=== PATIENT | female | born 1965 | race Caucasian/White ===

== ENCOUNTER 2020-02-14 13:53 | Outpatient (REF) | payer OTHER, SELFPAY ==
--- NOTE | 2020-02-14 | US_ITS ---
EXAMINATION: MM DIAGNOSTIC DIGITAL BREAST TOMOSYNTHESIS, LEFT US DIAGNOSTIC ULTRASOUND BREAST, LEFT CLINICAL INFORMATION: Recall from screening for nodularity retroareolar left breast and inferior medial left breast. COMPARISON: Mammography: 01/25/2020, 01/19/2019, 10/20/2017, 10/12/2015 TECHNIQUE: Digital breast tomosynthesis is performed. 2D images are generated from the tomosynthesis. The following views are obtained: Spot MLO, spot CC, standard ML. Ultrasound left breast is targeted to both areas left breast 6 to 11:00 position and areolar/periareolar breast. Grayscale imaging and color Doppler are performed without and with harmonics. FINDINGS: There are scattered areas of fibroglandular density (ACR BI-RADS breast composition Category b). The additional views demonstrate nodularity anterior inferior medial left breast, approximately 3.8 cm from nipple measuring around 5 mm. Margins appear smooth. In retrospect, finding is similar to prior studies dating back to 2016. Similarly, there is a 9:00 areolar nodule just beneath the skin likely stable from prior studies as well measuring approximately 0.6 cm. Ultrasound periareolar left breast demonstrates a cyst at the deep dermis 9:00 areolar 1 cm from nipple measuring 0.6 x 0.4 cm. This corresponds to finding on mammography. There is mild increased through-transmission of sound and no associated color flow. Finding is considered to be benign, possibly Patel gland cyst or sebaceous cyst. Ultrasound lower inner left breast demonstrates subtle isoechoic nodule 4 cm from nipple measuring approximately 0.6 x 0.3 cm. There is no associated increased or decreased through transmission of sound or color flow. Margins are smooth. The finding is considered to be benign given the stability on multiple prior mammograms. Results are discussed with the patient at time of visit. IMPRESSION: 1. Benign cyst 9:00 areolar at the dermis either Patel gland cyst or sebaceous cyst. Finding is similar to prior mammograms and considered benign. 2. Circumscribed isoechoic nodule lower inner anterior left breast. Finding is chronic and stable on prior mammograms and therefore considered benign. ASSESSMENT: BI-RADS 2: Benign RECOMMENDATION: Routine annual mammography screening. This patient's information was entered into a reminder system with a target due date for their next mammogram.
== END 2020-02-14 13:54 | disposition home or self-care (01) ==
LOC: HO.MAMMO 13:53
PROVIDERS: PCP Obstetrics & Gynecology; Visit Provider Obstetrics & Gynecology
DX: R92.2 Inconclusive mammogram (principal)
CPT/HCPCS: 76642; 77065

== ENCOUNTER 2020-03-09 09:03 | Outpatient (REF) | payer OTHER, SELFPAY ==
[2020-03-09 09:23] LABS: COVID-19 Test Negative (Negative)
== END 2020-03-09 09:04 | disposition home or self-care (01) ==
LOC: HO.LAB 09:03
PROVIDERS: Visit Provider Internal Medicine
DX: Z20.828 Contact with and (suspected) exposure to other viral communicable diseases (principal)
CPT/HCPCS: 87635; C9803

== ENCOUNTER 2020-04-12 14:42 | Outpatient (REF) | payer OTHER, SELFPAY ==
[2020-04-12 16:14] LABS: T4 Thyroxine 6.9 ug/dL (4.5-12.0); Thyroid Stimulating Hormone 4.14 uIU/mL (0.32-4.0)
== END 2020-04-12 14:43 | disposition home or self-care (01) ==
LOC: HO.LAB 14:42
PROVIDERS: PCP Nurse Practitioner Family; Visit Provider Internal Medicine Gastroenterology
DX: R19.7 Diarrhea, unspecified (principal)
CPT/HCPCS: 84436; 84443

== ENCOUNTER 2020-05-21 06:19 | Outpatient (REF) | payer OTHER, SELFPAY ==
[2020-05-21 07:35] LABS: Alanine Aminotransferase 17 U/L (0-31); Albumin Level 4.2 g/dL (3.5-5.0); Alkaline Phosphatase 66 U/L (39-117); Anion Gap 10 (12-20); Aspartate Amino Transferase 15 U/L (5-31); Bilirubin Total 0.4 mg/dL (0.0-1.0); Blood Urea Nitrogen 13 mg/dL (9-16); Calcium 8.7 mg/dL (8.4-10.2); Carbon Dioxide 27 mmol/L (22-29); Chloride 106 mmol/L (96-108); Cholesterol 178 mg/dL; Estimated Glomerular Filt Rate > 60; Glucose Fasting 107 mg/dL (60-99); HDL Cholesterol 42 mg/dL; LDL Cholesterol Calculated 111 mg/dl; Potassium 4.1 mmol/l (3.3-5.1); Sodium 139 mmol/L (135-145); Total Protein 6.5 g/dL (6.5-8.0); Triglycerides 127 mg/dL
[2020-05-21 08:17] LABS: SARS COV2 IgG Negative (Negative)
== END 2020-05-21 06:20 | disposition home or self-care (01) ==
LOC: HO.LAB 06:19
PROVIDERS: Visit Provider Nurse Practitioner Family
DX: Z00.00 Encounter for general adult medical examination without abnormal findings (principal); E03.9 Hypothyroidism, unspecified; Z01.84 Encounter for antibody response examination
CPT/HCPCS: 36415; 80053; 80061; 86769

== ENCOUNTER 2020-07-05 07:49 | Day surgery (SDC) | payer OTHER, SELFPAY ==
--- NOTE | 2020-06-26 11:06 | HP_ITS ---
DATE OF SERVICE: 07/05/2020 DATE OF PROPOSED SURGERY: July 05, 2020. PREOPERATIVE DIAGNOSES: 1. Hallux abducto valgus, right foot. 2. Dislocated sesamoid, right foot. PLANNED PROCEDURES: 1. Adebayo bunionectomy with open reduction and internal fixation, right foot. 2. Excision of dislocated sesamoid right foot. PLANNED ANESTHESIA: MAC anesthesia. CHIEF COMPLAINT AND HISTORY OF PRESENT ILLNESS: Zaira Ly is a 55-year-old female who relates history of painful bunion involving the right great toe joint, present over the past several years duration. Her pain is aggravated by shoe gear and walking activity. Conservative treatment consisting of rest, accommodative shoe gear, and anti-inflammatory have proven ineffective and the patient is now requesting surgical treatment. PAST MEDICAL HISTORY: Remarkable for anxiety and hypothyroidism. CURRENT MEDICATIONS: The patient takes lorazepam, Zoloft, and hyoscyamine. FAMILY HISTORY: Significant for foot problems, diabetes, hypertension, heart disease, and arthritis. SOCIAL HISTORY: The patient denies smoking, denies use of recreational drugs. She does relate alcohol consumption and drinks 4 cups of coffee per day. ALLERGIES: THE PATIENT HAS NEGATIVE REACTION TO PENICILLIN AND AMOXICILLIN. PODIATRIC PHYSICAL EXAMINATION: NEUROLOGIC EXAM: Reveals intact sensation. VASCULAR EXAM: Reveals +1/4 pulses. DP and PT arteries bilateral with normal capillary refill time noted bilateral feet. DERMATOLOGIC EXAM: Reveals intact skin. ORTHOPEDIC EXAM: Reveals advanced bunion deformity of the right first metatarsophalangeal joint, which is laterally track bound. The patient was seen most recently in my office on June 21, 2020, preoperative informed consent was obtained from the patient that day for planned right foot surgery. Preoperative medical clearance has been provided by Evangelina Granados. PELON Eckert/ALEJANDRO / [id number]
[2020-06-28 14:00] VITALS: BMI 29.9
[2020-07-05] VITALS (8 sets, daily range): BP systolic 100–129; BP diastolic 57–69; PULSE 56–70; RESP 14–18; TEMP 36.3–36.4; O2SAT 97–99
--- NOTE | 2020-07-05 08:11 | HO.ANESPROP2 ---
[facility] Past Medical History Medical History Anxiety disorder Hypothyroidism IBS (irritable bowel syndrome) Surgical History Surgical History History of lumpectomy of right breast History of partial hysterectomy Hx of section Hx of colonoscopy Social History Social History Are you a primary health care recruiter to a significant other at home: No Do you presently have visiting nurse or other home services: No Smoking Status: Former smoker Smoking Quit Date: 18 yrs ago Use of substances other than those prescribed or required for medical reasons: No Have you been hit, kicked, punched, or otherwise hurt by someone within the past year? If so, by whom?: No Advance Directives: No Advance Directives Information Provided: No Advance Directives on File: No Recently lost weight without trying: No Meds Allergies Allergy/AdvReac Type Severity Reaction Status Date / Time amoxicillin Allergy Rash Verified 06/28/20 13:57 vancomycin Allergy Itching Verified 07/05/20 09:31 methylcellulose [Citrucel] AdvReac Unknown upset Verified 06/28/20 13:38 stomach, diarrhea Active Medications: Current Medications Generic Name Dose Route Start Last Admin Trade Name Freq PRN Reason Stop Dose Admin Vancomycin HCl 1,500 mg/ 280 mls @ 186.667 mls/hr 07/05/20 07:30 Sodium Chloride IV 07/05/20 08:59 PREOP ONE Home Medications Medication Instructions Recorded Confirmed Last Taken Type hyoscyamine sulfate 1 tab SUBLINGUAL TID PRN 06/28/20 06/28/20 Unknown History lorazepam 1 tab PO DAILY PRN 06/28/20 06/28/20 Unknown History sertraline 1 tab PO DAILY 06/28/20 06/28/20 Unknown History Exam Exam Date and Time: July 05, 2020 0811 Height,Weight and Vital Signs: Height 5 ft 7 in Weight 86.664 kg Airway Mallampati Class: II TM Dist: >3cm Neck ROM: Full Loose/Missing/Broken Teeth: No Heart: RRR Lungs: CTA Assessment and Plan Assessment Anesthesia Assessment: Anesthesia Plan Discussed and Chart Reviewed Final Anesthetic Review NPO: Yes ASA Class: II Final Preanesthetic Review: Meds/Allgs Chart Reviewed, Consent Obtained/Reviewed and Anes Risks/Benef Reviewed Patient Risk: Low Procedure Risk: Low Anesthetic Plan Anesthetic Plan: GA and MAC: (General back up) Disposition: Standard PACU
--- NOTE | 2020-07-05 09:17 | MHC.SHP ---
Pre-Procedural Eval Section A The patient is an INPATIENT: No Changes since office visit: No Cold of Flu in the past 2 weeks, No New Medical Problems, No Changes in Medication and No Patient answered all questions Section B Chief Complaint: bunion right foot Allergies: Allergies Allergy/AdvReac Type Severity Reaction Status Date / Time amoxicillin Allergy Rash Verified 06/28/20 13:57 methylcellulose [Citrucel] AdvReac Unknown upset Verified 06/28/20 13:38 stomach, diarrhea Plan Diagnosis/Plan: Unchanged I have reviewed the history and physical and performed a pertinent physical examination on my patient. No changes have occurred unless specified.
--- NOTE | 2020-07-05 09:27 | PC.NURSE ---
Patient complaining of severe itchy head. Vancomycin stopped. Patient Denies SOB, Lungs clear. MD Camargo notified and at bedside. Dr. Nuñez notified and ordered to stop Vanco, no new antibiotics ordered. MD Camargo giving Benadryl IV. No hives/rash noted on patients body.
--- NOTE | 2020-07-05 10:29 | PCN2_ITS ---
Brief Operative Note Date of procedure: 07/05/20 Pre-op diagnosis: hallux valgus right Post-op diagnosis: same Procedure: saroj bunionectomy right foot with orif Anesthesia: GLMA Surgeon: Kwame Nuñez Embroiderer Hand: Sandra Valenzuela Estimated blood loss (mL): 1.0 Condition: stable Disposition: same day
--- NOTE | 2020-07-05 11:42 | OP_ITS ---
SURGEON: Kwame Nuñez DPM PREOPERATIVE DIAGNOSIS: POSTOPERATIVE DIAGNOSIS: PROCEDURE PERFORMED: ESTIMATED BLOOD LOSS: COMPLICATIONS: ANESTHESIA: Consisted of local administration of a total of 12 mL of an equal mix of 2% lidocaine with epinephrine 1:100,000 and 0.5% Marcaine plain. Intravenous anesthesia was given by the anesthesia department and the patient was converted to LMA since she was moving excessively and unable to stay still. ANESTHESIOLOGIST: Dr. Camargo.Dr. Camargo. ASSISTANTS: Sandra Valenzuela DPM. SPECIMENS: PREOPERATIVE DIAGNOSES: 1. Hallux abductovalgus, right foot. 2. Dislocated sesamoid, right foot. PROCEDURES PERFORMED: Brittni bunionectomy with open reduction and internal fixation of right foot and relocation of the dislocated sesamoid of the right foot. INTRODUCTION: The patient was brought to the operating room, placed on the operating table in the supine position. After having been suitably anesthetized with local infiltrative anesthesia, the right lower extremity was then prepped and draped in the usual sterile manner. Please note that prior to start of the procedure, the right foot was exsanguinated utilizing Esmarch bandage and right ankle tourniquet was inflated to 250 mmHg pressure for the duration of the procedure. BRITTNI BUNIONECTOMY WITH OPEN REDUCTION AND INTERNAL FIXATION, RIGHT FOOT. Attention was directed to the dorsal aspect of the right first metatarsophalangeal joint, where an incision approximately 7 cm in length was effected, centered over the dorsum of the right first metatarsophalangeal joint. Incision was deepened in same plane and hemostasis was acquired as necessary. Skin margins were underscored and retracted. A dorsal linear capsule incision was then effected. The capsule and periosteum were underscored and retracted. The hypertrophic medial eminence was resected utilizing a power sagittal saw. The first MTP joint was free from adhesions utilizing McGlamry elevator and then the first intermetatarsal space was exposed via blunt and sharp dissection. A lateral capsulotomy and adductor tenotomy were performed via sharp dissection. Please note, the EHL tendon was translocated and subluxed laterally, so it was no longer over the first metatarsal and entirely into the first intermetatarsal space. Attention was directed back to the medial aspect of first metatarsal head, where a modified V-osteotomy was carried out. The osteotomy was effected utilizing sagittal saw. The capital fragment was shifted laterally and impacted upon the first metatarsal and then fixated utilizing two Vidal 3.0 mm diameter screws, each measuring 17 mm in length and oriented perpendicular to the dorsal wing of the osteotomy. The 2-screw fixation was found to give excellent interfragmental compression. The redundant medial shelf of bone was then resected utilizing sagittal saw. The wound was irrigated with copious amounts of sterile saline. The capsule was closed with 3-0 Vicryl and care was taken to relocate the EHL tendon to more central location overlying the first metatarsal shaft. One half of a 3 cm x 3 cm AmnioFix was placed inside the first MTP joint capsule during closure. The skin margins were then closed with 4-0 Monocryl subcuticular with the second half of the AmnioFix being placed in subcutaneous tissue. The skin was then closed utilizing the ZipLine skin closure. Operative site was injected with 5 mL of Marcaine 0.5% plain and 1 mL of dexamethasone phosphate. Sterile Betadine-soaked gauze, sterile gauze, sterile Kerlix fluffs were then applied to the right lower extremity. The right ankle tourniquet was deflated. Normal blood flow was reestablished to the right lower extremity. The patient was discharged to Recovery with vital signs stable. FINAL DISPOSITION: The patient is discharged to home with instructions for self-care and include the followin. To keep the dressings dry, clean, and intact. 2. To keep the right leg elevated with ice above the ankle. 3. To take all medications as prescribed. 4. To limit activity to minimum. 5. To always use surgical shoe when ambulating. 6. To contact Dr. Nuñez if any questions or problems arise. The patient is also instructed to utilize crutches, partial weightbearing of the right foot or knee scooter. PELON Eckert/ALEJANDRO / [id number]
== END 2020-07-05 12:00 | disposition home or self-care (01) ==
PROVIDERS: PCP Nurse Practitioner Family; Visit Provider Podiatrist
PROC: (CPT 28292; principal; 2020-07-05 09:30)
DX: M20.11 Hallux valgus (acquired), right foot (principal); M21.611 Bunion of right foot
CPT/HCPCS: 28296; 88304; 88311; C1713; J1100; J1200; J1885; J2250; J2405; J3010; J3370; J3590

== ENCOUNTER 2020-11-04 20:45 | Emergency (ER) | payer OTHER, SELFPAY ==
--- NOTE | ~2020-11-04 | XR_ITS ---
EXAMINATION: XR ELBOW, LEFT CLINICAL INFORMATION: Fall, confusion. COMPARISON: None TECHNIQUE: AP, lateral, and oblique views of the left elbow. FINDINGS: No visible acute fracture or dislocation. Alignment is anatomic. Joint spaces are maintained. No significant effusion appreciated. XR/XR elbow LT min 3V IMPRESSION: No visible acute fracture or dislocation.
[2020-11-04 20:49] VITALS: BP 145/69; PULSE 66; RESP 16; TEMP 36.4; O2SAT 98; BMI 28.8
--- NOTE | 2020-11-04 21:10 | ED_ITS ---
HPI - Extremity Injury (Upper) General Chief Complaint: Fall Stated Complaint: Arm pain/Injury at work Time Seen by Provider: 11/04/20 21:03 Source: patient Mode of arrival: ambulatory History of Present Illness HPI narrative: 55-year-old female without significant past medical history presents after having sustained a mechanical fall on a wet floor yesterday while at work which caused her to strike her head against the lockers but denies any loss of consciousness, in addition patient struck her left forearm. She denies any use of anticoagulation, dizziness, headache. Since that time patient has been treating her contusions at home, but states due to the continued pain at the proximal left forearm she decided to have it further evaluated. Related Data Home Medications Medication Instructions Recorded Confirmed hyoscyamine sulfate 1 tab SUBLINGUAL TID PRN 06/28/20 06/28/20 lorazepam 1 tab PO DAILY PRN 06/28/20 06/28/20 sertraline 1 tab PO DAILY 06/28/20 06/28/20 Allergies Allergy/AdvReac Type Severity Reaction Status Date / Time amoxicillin Allergy Rash Verified 11/04/20 20:48 vancomycin Allergy Itching Verified 11/04/20 20:48 methylcellulose [Citrucel] AdvReac Unknown upset Verified 11/04/20 20:48 stomach, diarrhea Review of Systems Review of Systems: Pertinent positives and negatives as stated in HPI 10 point review of systems is otherwise negative PMFSH Past Medical History Source: nursing notes reviewed Medical History Anxiety disorder Hypothyroidism IBS (irritable bowel syndrome) Surgical History History of lumpectomy of right breast History of partial hysterectomy Hx of section Hx of colonoscopy Social History Social History Are you a primary laboratory animal caretaker to a significant other at home: No Do you presently have visiting nurse or other home services: No Advance Directives: No Advance Directives Information Provided: No Physical Exam Vital Signs: Vital Signs: Last Vital Signs Temp 97.6 F 11/04/20 20:49 Pulse 66 11/04/20 20:49 Resp 16 11/04/20 20:49 BP 145/69 H 11/04/20 20:49 Pulse Ox 98 11/04/20 20:49 Body Mass Index 28.8 VITAL SIGNS: Reviewed. GENERAL: Well developed, well nourished, in no acute distress. HEAD: Normocephalic/ Contusion to the back of the head EYES: PERRLA, EOMI OROPHARYNX: no oral lesions noted, posterior pharynx clear LUNGS: Normal breath sounds. No adventitious sounds or accessory muscle use. SpO2<98> CARDIOVASCULAR: Regular rate and rhythm without noted murmurs ABDOMEN: Soft, non-tender, non-distended with bowel sounds. LEFT UPPER EXTREMITY: There is a noted for 4.5 cm contusion to the proximal lateral forearm with maintain full range of motion at the elbow without clicking, capillary refill less than 3 seconds, sensation is intact, palpable radial and ulnar pulses. SKIN: Inspection of the skin reveals no rashes NEUROLOGIC: Alert and oriented x 4. Strength and sensation to light touch were grossly intact x 4, no facial asymmetry, no pronator drift, cranial nerves 2-12 grossly intact.. Course Course Course Narrative: 55-year-old female with history and clinical presentation consistent with contusion to left forearm and based on neurologic exam no indication to pursue CT of the head at this time. Review of x-ray negative for any fracture or dislocation. Patient informed of results and discharged in stable condition. Discharge Plan Discharge Clinical Impression: Contusion of arm, left Patient Disposition: Home, Self-Care Instructions: Contusion in Adults (ED) Prescriptions: No Action lorazepam 0.5 mg tablet 1 tab PO DAILY PRN (Reason: Anxiety) RF: 0 hyoscyamine sulfate 0.125 mg tablet, sublingual 1 tab sublingual TID PRN (Reason: diarrhea) RF: 0 sertraline 50 mg tablet 1 tab PO DAILY RF: 0 Referrals: Evangelina Granados, QUALITY CONTROL DIRECTOR [Primary Care Provider] - 2 days Stand Alone Forms: Work/School Release
--- NOTE | 2020-11-04 22:59 | PC.NURSE ---
DEANGELO RAD IS TAKE LONGER THAN USUAL TO READ IMAGING TODAY PT IS AWARE OF LONGER THAN EXPECTED WAIT TIMES.
== END 2020-11-04 23:36 | disposition home or self-care (01) ==
PROVIDERS: Emergency Provider Student in an Organized Health Care Education/Training Program; PCP Nurse Practitioner Family
DX: S50.12XA Contusion of left forearm, initial encounter (principal); W01.198A Fall on same level from slipping, tripping and stumbling with subsequent striking against other object, initial encounter; Y93.89 Activity, other specified; Y92.29 Other specified public building as the place of occurrence of the external cause; Y99.0 Civilian activity done for income or pay
CPT/HCPCS: 73080; 99283

== ENCOUNTER 2021-02-05 18:41 | Emergency (ER) | payer OTHER, SELFPAY ==
--- NOTE | ~2021-02-05 | XR_ITS ---
EXAMINATION: CHEST 2 VIEWS CLINICAL INFORMATION: chest pressure. Sensation of lump . COMPARISON: 06/19/2007. TECHNIQUE: PA and lateral views of the chest obtained. FINDINGS: The lungs are well expanded. Mild eventration to the anterior right hemidiaphragm again noted. No focal infiltrate, effusion, edema, or pneumothorax. Cardiac and mediastinal silhouettes are within normal limits for technique. No acute bony abnormality seen XR/XR chest 2V IMPRESSION: No evidence of acute disease compared to 06/19/2007
[2021-02-05 18:48] VITALS: BP 138/76; PULSE 57; RESP 18; TEMP 37; O2SAT 98; BMI 28.8
--- NOTE | 2021-02-05 18:53 | ECG_ITS ---
Test Reason : CHEST PRESSURE Blood Pressure : / mmHG Vent. Rate : 055 BPM Atrial Rate : 055 BPM P-R Int : 190 ms QRS Dur : 088 ms QT Int : 442 ms P-R-T Axes : 026 006 026 degrees QTc Int : 422 ms Sinus bradycardia Otherwise normal ECG No previous ECGs available Referred By: Generic ED Physician Electronically Signed By:RAVI BERGERON
[2021-02-05 19:25] LABS: COVID-19 Test Negative (Negative); IDNOW Serial# 9DD0AD1C
[2021-02-05 21:04] VITALS: BP 167/74; PULSE 60; RESP 18; O2SAT 99
--- NOTE | 2021-02-05 21:28 | ED.GENADULT ---
HPI - General Adult General Chief complaint: Upper Respiratory Symptoms Stated complaint: chest discomfort, ? something lodged in throat Time Seen by Provider: 02/05/21 21:11 Source: patient Mode of arrival: ambulatory Limitations: no limitations History of Present Illness HPI narrative: Patient presents to ED for atypical chest discomfort present taken. Patient states since yesterday having sensation of a lump/something in her throat when she swallows but goes down to her mid chest and causes pain. Patient denies any drooling, change in voice, or inability to tolerate solid food/liquid. patient states she has been eating and drinking since yesterday. Patient came to ED to be evaluated. patient denies Abdominal pain, shortness of breath, swelling of lower extremities, calf pain, coughing up blood, fever, or chills. Patient does not have any past medical history. Patient states family history of father with heart attack in 50s . Patient denies eating any meat with bones yesterday. Patient states yesterday he only had spaghetti and meatballs. Related Data Home Medications Medication Instructions Recorded Confirmed hyoscyamine sulfate 0.125 mg 1 tab SUBLINGUAL TID PRN 06/28/20 06/28/20 sublingual tablet lorazepam 0.5 mg tablet 1 tab PO DAILY PRN 06/28/20 06/28/20 sertraline 50 mg tablet 1 tab PO DAILY 06/28/20 06/28/20 Previous Rx's Medication Instructions Recorded famotidine 20 mg tablet (Pepcid) 20 mg PO BID #20 tab 02/05/21 Allergies Allergy/AdvReac Type Severity Reaction Status Date / Time amoxicillin Allergy Rash Verified 02/05/21 18:48 vancomycin Allergy Itching Verified 02/05/21 18:48 methylcellulose [Citrucel] AdvReac Unknown upset Verified 02/05/21 18:48 stomach, diarrhea Review of Systems Review of Systems: Yes all other systems are reviewed and are negative Constitutional: Constitutional: Reports as per HPI and Reports no additional constitutional complaints Eyes: Eyes: Reports as per HPI and Reports no additional eye complaints ENT: Reports system reviewed and no additional complaints, except as documented and Reports as per HPI Cardiovascular: Cardiovascular: Reports as per HPI and Reports no additional cardiovascular complaints Comments: Chest discomfort Respiratory: Respiratory: Reports as per HPI and Reports no additional respiratory complaints Gastrointestinal: Gastrointestinal: Reports as per HPI and Reports no additional gastrointestinal complaints Genitourinary: Genitourinary: Reports no additional female genitourinary complaints and Reports as per HPI Musculoskeletal: Musculoskeletal: Reports no additional musculoskeletal complaints and Reports as per HPI Neurologic: Reports system reviewed and no additional complaints, except as documented and Reports as per HPI Psychiatric: Psychiatric: Reports no additional psychiatric complaints and Reports as per HPI [facility] Past Medical History Medical History Anxiety disorder Hypothyroidism IBS (irritable bowel syndrome) Surgical History History of lumpectomy of right breast History of partial hysterectomy Hx of section Hx of colonoscopy Social History Social History Are you a primary interior plant caretaker to a significant other at home: No Do you presently have visiting nurse or other home services: No Advance Directives: No Advance Directives Information Provided: No Patient : No Physical Exam Vital Signs: Vital Signs: Last Vital Signs Temp 98.6 F 02/05/21 18:48 Pulse 60 02/05/21 21:04 Resp 18 02/05/21 21:04 BP 167/74 H 02/05/21 21:04 Pulse Ox 99 02/05/21 21:04 Body Mass Index 28.8 Const: Other: Patient speaking in full sentences and not using accessory muscles. Negative for any drooling, change in voice, or choking. Negative for stridor General: cooperative, healthy appearing, comfortable, no acute distress, well developed, alert, awake and Physically active Orientation/consciousness: patient oriented x3 HENMT: Head: Yes normal to inspection, Yes No palpable skull fracture present, Yes normocephalic and Yes atraumatic Eyes: General: appearance normal, both eyes and all related structures Neck: Other: Negative for mass on palpation or inspection on anterior, lateral, and posterior neck. Neck: Yes normal visual inspection, Yes full ROM, Yes no lymphadenopathy, Yes no meningeal signs, Yes trachea midline, Yes supple, No anterior neck swelling and No tender Chest: Chest palpation & inspection: normal inspection of the chest and normal palpation of entire chest wall Resp: Effort & Inspection: normal respiratory effort and able to speak in complete sentences Auscultation: clear to auscultation bilaterally Cardio: Jugular venous distension: no JVD Heart sounds: S1 normal heart sound present and S2 normal heart sound present GI: Inspection: Yes normal to inspection and No abdominal wall ecchymosis Palpation (GI): Soft to palpation, not firm, nontender, no guarding and not rigid : General: No CVA tenderness and Yes no CVA tenderness Back/Spine/Pelvis: Back: no CVA tenderness, No CVA tenderness and No back tenderness Skin: General skin exam: no rashes or lesions noted and elasticity normal Neuro: General: patient oriented x3, no meningeal signs and CN's II-XI intact bilaterally Cranial nerves: Yes CN's II-XII intact bilaterally Extrem: Other: Lower extremities negative for swelling, pitting edema, or calf tenderness. General: Yes normal to inspection and Yes full ROM Psych: Appearance: grossly normal, well kempt and not disheveled Course Course Course Narrative: Presently not suspected food bolus. Patient is talking clearly in full sentences negative for drooling. Patient states she has been eating food and drinking water for the past 2 days. We will do EKG cardiac evaluation. Will give GI cocktail. Reevaluation(s) Reevaluation #1: EKG negative STEMI. EKG shows sinus Bradycardia. Troponin negative. Chest x-ray normal. COVID swab is negative. Not suspecting food bolus. Patient tolerating and passed p.o. challenge. Differential GERD. Troponin negative after having atypical presentations since yesterday. Presently not having any chest pain. patient is not having any shortness of breath. Patient feels better after being given GI cocktail. Diagnosis GERD. Patient informed to follow-up with a rental management trainee for endoscopy to see if she has any esophageal motility issues. Patient also informed to follow-up with primary care provider to see if referral to Cardiology and needed due to family history of father heart attack in 50s. Patient's heart score 2. Not suspecting food bolus. Not suspecting PE. Patient denies any pleuritic chest pain, recent long travel, recent surgery, history of blood clots, history of estrogen use, recent trauma or any pleuritic chest pain. Time: 23:11 Medical Decision Making MDM Narrative Medical decision making narrative: GERD, atypical chest pain Lab Data Result diagrams: 02/05/21 21:27 02/05/21 21:27 Labs: Lab Results 02/05/21 02/05/2102/05/21 Range/Units 18:56 21:27 21:27 WBC 9.2 (4.8-10.8) X10*3/uL RBC 4.41 (4.20-5.50) X10*6/uL Hgb 13.5 (12.0-16.0) g/dl Hct 39.1 (37-47) % MCV 88.7 (80-98) fL MCH 30.6 (27.0-33.0) pg MCHC 34.5 (31.0-35.0) g/dl RDW 12.5 (11.0-16.0) % Plt Count 251 (160-400) X10*3/uL MPV 9.6 (9.4-12.3) fL Immature Gran % (Auto) 0.2 (0.0-0.4) % Neut % (Auto) 63.7 (45-73) % Lymph % (Auto) 28.9 (20-40) % Kimble % (Auto) 4.4 (2-11) % Eos % (Auto) 2.4 (0-4) % Baso % (Auto) 0.4 (0-2) % Lymph # (Auto) 2.7 (1.2-4.9) X10*3/uL Kimble # (Auto) 0.4 (0.1-1.2) X10*3/uL Eos # (Auto) 0.2 (0.0-0.4) X10*3/uL Baso # (Auto) 0.0 (0.0-0.2) X10*3/uL Abs Immat Gran (auto) 0.02 (0.00-0.03) X10*3/uL Absolute Neuts (auto) 5.9 (2.0-8.3) X10*3/uL Absolute Nucleated RBC 0.000 (0.0-0.012) X10*3/uL Nucleated RBC % (auto) 0.0 (0.0-0.2) /100WBC Sodium 140 (135-145) mmol/L Potassium 4.6 (3.3-5.1) mmol/L Chloride 105 (96-108) mmol/L Carbon Dioxide 29 (22-29) mmol/L Anion Gap 11 L (12-20) BUN 15 (9-16) mg/dL Creatinine 0.76 (0.5-1.4) mg/dL Estim Creat Clear Calc 98.3 Estimated GFR > 60 Random Glucose 101 (60-115) mg/dL Calcium 9.4 D (8.4-10.2) mg/dL Total Bilirubin 0.7 (0.0-1.0) mg/dL AST 19 (5-31) U/L ALT 20 (0-31) U/L Alkaline Phosphatase 79 (39-117) U/L Troponin I High Sens (<3.5-17.0) ng/L B-Natriuretic Peptide (<100) pg/mL Total Protein 6.9 (6.5-8.0) g/dL Albumin 4.4 (3.5-5.0) g/dL COVID-19 (DAVID) Negative (Negative) COVID-19 Clin Com See Note 02/05/21 Range/Units 21:27 WBC (4.8-10.8) X10*3/uL RBC (4.20-5.50) X10*6/uL Hgb (12.0-16.0) g/dl Hct (37-47) % MCV (80-98) fL MCH (27.0-33.0) pg MCHC (31.0-35.0) g/dl RDW (11.0-16.0) % Plt Count (160-400) X10*3/uL MPV (9.4-12.3) fL Immature Gran % (Auto) (0.0-0.4) % Neut % (Auto) (45-73) % Lymph % (Auto) (20-40) % Kimble % (Auto) (2-11) % Eos % (Auto) (0-4) % Baso % (Auto) (0-2) % Lymph # (Auto) (1.2-4.9) X10*3/uL Kimble # (Auto) (0.1-1.2) X10*3/uL Eos # (Auto) (0.0-0.4) X10*3/uL Baso # (Auto) (0.0-0.2) X10*3/uL Abs Immat Gran (auto) (0.00-0.03) X10*3/uL Absolute Neuts (auto) (2.0-8.3) X10*3/uL Absolute Nucleated RBC (0.0-0.012) X10*3/uL Nucleated RBC % (auto) (0.0-0.2) /100WBC Sodium (135-145) mmol/L Potassium (3.3-5.1) mmol/L Chloride (96-108) mmol/L Carbon Dioxide (22-29) mmol/L Anion Gap (12-20) BUN (9-16) mg/dL Creatinine (0.5-1.4) mg/dL Estim Creat Clear Calc Estimated GFR Random Glucose (60-115) mg/dL Calcium (8.4-10.2) mg/dL Total Bilirubin (0.0-1.0) mg/dL AST (5-31) U/L ALT (0-31) U/L Alkaline Phosphatase (39-117) U/L Troponin I High Sens < 3.5 (<3.5-17.0) ng/L B-Natriuretic Peptide 59 (<100) pg/mL Total Protein (6.5-8.0) g/dL Albumin (3.5-5.0) g/dL COVID-19 (DAVID) (Negative) COVID-19 Clin Com ECG Data Interpretation: Sinus bradycardia. Reticular rate 55. Pr interval 190. QRS 88. QTC 422. Negative STEMI Discharge Plan Discharge Clinical Impression: Chest pain due to GERD, Atypical chest pain Patient Disposition: Home, Self-Care Instructions: Chest Pain (ED), Gastroesophageal Reflux Disease (ED) Additional Instructions: EKG and blood work came back negative. Chest x-ray was normal. COVID soft came back negative. Labs came back at baseline. Recommend follow-up with Gastroenterology. Also follow-up with primary care provider. Return to ED for any chest pain, shortness of breath, drooling, change in voice, inability to tolerate solid food/liquid, swelling of lower extremity, calf pain, fever, chills, abdominal pain, nausea, vomiting, or any other concerning symptoms. Prescriptions: New famotidine [Pepcid] 20 mg tablet 20 mg PO BID Qty: 20 RF: 0 No Action lorazepam 0.5 mg tablet 1 tab PO DAILY PRN (Reason: Anxiety) RF: 0 hyoscyamine sulfate 0.125 mg tablet, sublingual 1 tab sublingual TID PRN (Reason: diarrhea) RF: 0 sertraline 50 mg tablet 1 tab PO DAILY RF: 0 Referrals: Tevin Luna [Physician] - 2 days (GERD. May need evaluation for esophageal motility issues. Presently not suspecting food bolus.) Evangelina Granados NP [Primary Care Provider] - 2 days (Atypical chest pain) Stand Alone Forms: Work/School Release Print Language: Somali
[2021-02-05 21:32] LABS: MANUAL DIFF FLAG NO
[2021-02-05 21:35] LABS: Basophils Percent Auto 0.4 % (0-2); Eosinophils Absolute Auto 0.2 X10*3/uL (0.0-0.4); Eosinophils Percent Auto 2.4 % (0-4); Hematocrit 39.1 % (37-47); Hemoglobin 13.5 g/dl (12.0-16.0); Imm Gran Abs Auto 0.02 X10*3/uL (0.00-0.03); Imm Gran Pct Auto 0.2 % (0.0-0.4); Lymphocytes Absolute Auto 2.7 X10*3/uL (1.2-4.9); Lymphocytes Percent Auto 28.9 % (20-40); Mean Corpuscular HGB Conc 34.5 g/dl (31.0-35.0); Mean Corpuscular Hemoglobin 30.6 pg (27.0-33.0); Mean Corpuscular Volume 88.7 fL (80-98); Mean Platelet Volume 9.6 fL (9.4-12.3); Monocytes Absolute Auto 0.4 X10*3/uL (0.1-1.2); Monocytes Percent Auto 4.4 % (2-11); Neutrophils Absolute Auto 5.9 X10*3/uL (2.0-8.3); Neutrophils Percent Auto 63.7 % (45-73); Platelet Count 251 X10*3/uL (160-400); Red Blood Count 4.41 X10*6/uL (4.20-5.50); Red Cell Distribution Width 12.5 % (11.0-16.0); White Blood Count 9.2 X10*3/uL (4.8-10.8)
[2021-02-05 21:49] LABS: Alanine Aminotransferase 20 U/L (0-31); Albumin Level 4.4 g/dL (3.5-5.0); Alkaline Phosphatase 79 U/L (39-117); Anion Gap 11 (12-20); Aspartate Amino Transferase 19 U/L (5-31); Bilirubin Total 0.7 mg/dL (0.0-1.0); Blood Urea Nitrogen 15 mg/dL (9-16); Calcium 9.4 mg/dL (8.4-10.2); Carbon Dioxide 29 mmol/L (22-29); Chloride 105 mmol/L (96-108); Creatinine Clr Calc Pharmacy 98.3; Estimated Glomerular Filt Rate > 60; Glucose Random 101 mg/dL (60-115); Potassium 4.6 mmol/L (3.3-5.1); Sodium 140 mmol/L (135-145); Total Protein 6.9 g/dL (6.5-8.0)
[2021-02-05 21:54] LABS: B Type Natriuretic Peptide 59 pg/mL (<100); Troponin-I High Sensitivity < 3.5 ng/L (<3.5-17.0)
[2021-02-05] MEDS: Lidocaine HCl Viscous 2 % 15 ML SOLUTION MUCOUS MEM (22:15)
[2021-02-05] MEDS: PHENobarb/Hyoscy/Atropine/Scop 10 ML ELIXIR PO (22:15)
[2021-02-05] MEDS: Famotidine 20 MG TABLET PO (22:15)
[2021-02-05] MEDS: Magnesium Hydrox/Alum Hydrox 30 ML ORAL.SUSP PO (22:15)
== END 2021-02-05 23:43 | disposition home or self-care (01) ==
PROVIDERS: Physician Assistant; Emergency Provider Internal Medicine; PCP Nurse Practitioner Family
DX: R07.9 Chest pain, unspecified (principal); K21.9 Gastro-esophageal reflux disease without esophagitis; R07.89 Other chest pain; R06.02 Shortness of breath; Z20.822 Contact with and (suspected) exposure to COVID-19; Z79.899 Other long term (current) drug therapy
CPT/HCPCS: 36415; 71046; 80053; 83880; 84484; 85025; 87635; 93005; 99284

== ENCOUNTER 2021-10-24 14:10 | Outpatient (REF) | payer OTHER, SELFPAY ==
--- NOTE | ~2021-10-24 | MM_ITS ---
EXAMINATION: MM SCREENING DIGITAL BREAST TOMOSYNTHESIS, BILATERAL CLINICAL INFORMATION: Screening. Asymptomatic. The lifetime risk of breast cancer based on the Tyrer-Cuzick Model is 7.7%. COMPARISON: Mammography: February 14, 2020 and studies dating back to May 02, 2013 TECHNIQUE: Digital breast tomosynthesis is performed in both the craniocaudal and mediolateral oblique views along with computer-aided detection (CAD). Synthesized 2D images are generated from the tomosynthesis. FINDINGS: There are scattered areas of fibroglandular density (ACR BI-RADS breast composition Category b). There are no significant masses, abnormal calcifications, or other abnormalities. MM/MM tomosynthesis screening BI IMPRESSION: There are no significant changes from prior study. ASSESSMENT: BI-RADS 1: Negative RECOMMENDATION: Routine annual mammography screening. This patient's information was entered into a reminder system with a target due date for their next mammogram.
== END 2021-10-24 14:11 | disposition home or self-care (01) ==
LOC: HO.MAMMO 14:10
PROVIDERS: PCP Internal Medicine; Visit Provider Obstetrics & Gynecology
DX: Z12.31 Encounter for screening mammogram for malignant neoplasm of breast (principal)
CPT/HCPCS: 77063; 77067

== ENCOUNTER 2022-07-03 17:06 | Outpatient (REF) | payer OTHER, SELFPAY ==
--- NOTE | ~2022-07-03 | XR_ITS ---
EXAMINATION: XR LUMBOSACRAL SPINE CLINICAL INFORMATION: 1 normal COMPARISON: None TECHNIQUE: Three views of the lumbosacral spine. FINDINGS: There is normal lumbar lordosis is mild levoscoliosis. The vertebral heights, alignment and disc heights are normal. No visible acute fracture, lytic or sclerotic process seen. There is mild ventral spondylosis throughout lumbar spine. SI joints are symmetrical. The soft tissues are normal. XR/XR lumbar spine 2-3V IMPRESSION: Mild levoscoliosis. No visible acute fracture, dislocation or lytic process seen.
== END 2022-07-03 17:07 | disposition home or self-care (01) ==
LOC: HO.XRAY 17:06
PROVIDERS: PCP Nurse Practitioner Family; Visit Provider Nurse Practitioner Family
DX: Z91.81 History of falling (principal)
CPT/HCPCS: 72100

== ENCOUNTER 2023-01-09 15:44 | Outpatient (REF) | payer OTHER, SELFPAY ==
--- NOTE | ~2023-01-09 | MM_ITS ---
EXAMINATION: MM SCREENING DIGITAL BREAST TOMOSYNTHESIS, BILATERAL CLINICAL INFORMATION: Screening. Asymptomatic. COMPARISON: Mammography: This study is compared with prior exams dating back to 2018. TECHNIQUE: Digital breast tomosynthesis is performed in both the craniocaudal and mediolateral oblique views along with computer-aided detection (CAD). Synthesized 2D images are generated from the tomosynthesis. FINDINGS: There are scattered areas of fibroglandular density (ACR BI-RADS breast composition Category b). There are no significant masses, abnormal calcifications, or other abnormalities. There is a biopsy tissue marker present in the upper inner quadrant of the right breast which is associated with a small benign mass. MM/MM tomosynthesis screening BI IMPRESSION: No mammographic evidence of malignancy. ASSESSMENT: BI-RADS BI-RADS 2 - Benign Findings RECOMMENDATION: Routine annual mammography screening. 1 year F/U This examination should not preclude the clinical evaluation of a suspicious palpable abnormality. This patient's information was entered into a reminder system with a target due date for their next mammogram.
== END 2023-01-09 15:45 | disposition home or self-care (01) ==
LOC: HO.MAMMO 15:44
PROVIDERS: PCP Nurse Practitioner Family; Visit Provider Nurse Practitioner Family
DX: Z12.31 Encounter for screening mammogram for malignant neoplasm of breast (principal)
CPT/HCPCS: 77063; 77067

== ENCOUNTER → 2023-01-09 15:45 | Outpatient (BNV) | payer OTHER, SELFPAY | PROVIDERS: PCP Nurse Practitioner Family; Visit Provider Radiology Diagnostic Radiology | DX: Z12.31 Encounter for screening mammogram for malignant neoplasm of breast (principal) | CPT/HCPCS: 77063; 77067 ==

== ENCOUNTER 2023-09-22 12:12 | Outpatient (AMB) | payer OTHER, SELFPAY ==
--- NOTE | 2023-09-22 12:20 | MHC.OFFWIV ---
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 She has a mild cough but denies shortness of breath or chest pain PFSH Medical History Anxiety disorder Hypothyroidism IBS (irritable bowel syndrome) Surgical History History of lumpectomy of right breast History of partial hysterectomy Hx of section Hx of colonoscopy Social History Are you a primary skin care specialist to a significant other at home: No Do you presently have visiting nurse or other home services: No Patient Tobacco Use Status: Never used Tobacco Review of Systems Const All systems reviewed & are unremarkable except as noted in HPI and below Eyes Reports no additional complaints ENT Reports post nasal drip, Reports sinus pain and Reports sinus pressure Card Reports no additional complaints Resp Reports cough GI Reports no additional complaints Physical Exam Vital Signs: Last Vital Signs Temp 97.4 F 09/22/23 12:22 Pulse 68 09/22/23 12:22 BP 120/70 09/22/23 12:22 Pulse Ox 97 09/22/23 12:22 Oxygen Delivery Method Room Air 09/22/23 12:22 BMI result Body Mass Index 0.3 Const General: healthy appearing and comfortable HEENT Head: Yes normal to inspection, Yes normocephalic and Yes atraumatic Ears: hearing grossly normal bilaterally and TM's normal bilaterally General nose exam: Normal external nose present Face and sinus: Yes sinus tenderness Throat: Yes postnasal drainage Resp Effort & Inspection: normal respiratory effort Auscultation: clear to auscultation bilaterally Cardio Rate: regular rate Rhythm: regular rhythm Assessment & Plan Assessment & Plan (1) Sinusitis: Code(s): J32.9 - Chronic sinusitis, unspecified Plan: See plan Plan See plan Medications: New doxycycline hyclate 100 mg PO BID 14 caps 0RF 7 days Discontinued famotidine (Pepcid) Discontinued Reason: Patient no longer taking 20 mg PO BID 20 tabs 0RF Coding Level of Care Code Est Pt Level 3 (30836) Diagnoses Sinusitis J32.9
[2023-09-22 12:22] VITALS: BP 120/70; PULSE 68; TEMP 36.3; O2SAT 97
== END 2023-09-22 13:32 | disposition home or self-care (01) ==
PROVIDERS: PCP Nurse Practitioner Family; Visit Provider Physician Assistant Medical
DX: J32.9 Chronic sinusitis, unspecified (principal)
CPT/HCPCS: 99213

== ENCOUNTER 2024-02-02 15:59 | Outpatient (REF) | payer SELFPAY ==
--- NOTE | ~2024-02-02 | MM_ITS ---
EXAMINATION: MM SCREENING DIGITAL BREAST TOMOSYNTHESIS, BILATERAL CLINICAL INFORMATION: Screening. Asymptomatic. COMPARISON: Mammography: Comparison is made with available priors TECHNIQUE: Digital breast mammography with tomosynthesis is performed in both the craniocaudal and mediolateral oblique views along with computer-aided detection (CAD). FINDINGS: There are scattered areas of fibroglandular density (ACR BI-RADS breast composition Category b). There are no significant masses, abnormal calcifications, or other abnormalities. MM/MM tomosynthesis screening BI IMPRESSION: No mammographic evidence of malignancy. ASSESSMENT: BI-RADS BI-RADS 1 - Negative RECOMMENDATION: Routine annual mammography screening. 1 year F/U This examination should not preclude the clinical evaluation of a suspicious palpable abnormality. This patient's information was entered into a reminder system with a target due date for their next mammogram. Electronically signed by: Anayeli Solitario DO 02/12/2024 01:49 PM EDT
== END 2024-02-02 16:00 | disposition home or self-care (01) ==
LOC: HO.MAMMO 15:59
PROVIDERS: PCP Physician Assistant Surgical; Visit Provider Obstetrics & Gynecology
DX: Z12.31 Encounter for screening mammogram for malignant neoplasm of breast (principal)
CPT/HCPCS: 77063; 77067

== ENCOUNTER → 2024-02-02 16:00 | Outpatient (BNV) | payer SELFPAY | PROVIDERS: PCP Physician Assistant Surgical; Visit Provider Internal Medicine | DX: Z12.31 Encounter for screening mammogram for malignant neoplasm of breast (principal) | CPT/HCPCS: 77063; 77067 ==

== ENCOUNTER 2024-11-29 08:34 | Outpatient (REF) | payer BC, SELFPAY ==
--- OUTSIDE RECORDS SUMMARY | 2024-11-29 08:51 | XMS_ITS | Clinical Summary ---
Author Organization [facility] Address [address] [place] [phone] Phone Care Team Providers Care Heating Technician Name Role Phone Padmini Palacio Unavailable Johnny Vargas PA-C Primary Care Provider [phone] Ra Irizarry MD Unavailable [phone] Allergies Active Allergy Reactions Criticality Noted Date Comments Amoxicillin Rash Low 11/02/2017 Vancomycin Hives,Itching,Palpitations Low 1 Medications MELATONIN ORAL Take 10 mg by mouth nightly at bedtime. Active spironolactone (ALDACTONE) 50 MG tablet Take 150 mg by mouth daily. 4 Active cholecalciferol (VITAMIN D3) 2,000 unit tablet Take 4,000 Units by mouth daily. Active ascorbic acid (VITAMIN C ORAL) Take by mouth. Activ e FA/niacinamide/ cupric ox/Zn ox (NICOTINAMIDE ORAL) Take 500 mg by mouth daily. Active estradioL (VAGIFEM) [address] 10 mcg vaginally 2 (two) times a week. 4 Active levothyroxine (SYNTHROID, LEVOTHROID) 88 MCG tabletIndicatio ns:Hypothyroidi sm TAKE 1 TABLET(88 MCG) BY MOUTH EVERY MORNING 90 tablet 3 5 Active sertraline (ZOLOFT) 50 MG tabletIndicatio ns:Anxiety disorder,Anacli tic depression TAKE 1 TABLET(50 MG) BY MOUTH DAILY 90 tablet 3 5 Active LORazepam (ATIVAN) 0.5 MG tabletIndicatio ns:Anxiety disorder Take 1 tablet (0.5 mg total) by mouth daily as needed for anxiety (must last one month). 15 tablet 5 Active Active Problems Problem Noted Date Diagnosed Date Mass of right lower extremity 10/12/2024 Assessment & Plan (10/12/2024 4:45 PM EDT): Mass noted on the distal lateral aspect of the right thigh by her PT. She is unclear of how long it has been present or if it has grown in size. She does not pain to palpation of the area. -US RLE non-vascular for further evaluation. Palpitations 05/18/2024 Assessment & Plan (05/18/2024 1:42 PM EST): Heart rate here in the office is noted to be 70 however patient mentions some shortness of breath and palpitations. She denies any chest pain. Will obtain an EKG here in the office which revealed sinus rhythm heart rate 61 Left upper quadrant abdominal pain 05/18/2024 Assessment & Plan (05/18/2024 1:42 PM EST): Patient with recent episode of abdominal pain nausea, vomiting and diarrhea that started Thursday evening and lasted through Thursday. Patient states that she felt like she was well-hydrated however she feels extremely fatigued and off. She also noted to have low blood pressure and feeling of palpitations. She states overall she just does not feel right. On physical examination she is noted to have exquisite tenderness to palpation in the left upper quadrant extending into the epigastric region with rebound. Concern for pancreatitis vs diverticulitis -Given the concern will send patient to the emergency department for further work up with CT abd/pelvis. Patient prefers to go to [facility]. Patient would like to be transported by her sister or child instead of via ambulance. Nursing has placed an expect to the emergency department. COVID 05/06/2024 Assessment & Plan (05/06/2024 9:30 AM EST): She began experiencing a low-grade fever and cough 1 week ago. On Thursday she tested herself for COVID and was noted to be positive. She presents today with continued cough and sinus congestion, but overall improvement. She is requesting a work note in case it is asked of her as she has been out of work all week. Work note given to the patient. Advised patient of symptomatic treatment. Advised ER protocol and office follow-up. Lungs were clear to auscultation bilaterally so low concern for worsening of the disease or underlying pneumonia. Trapezius strain 02/10/2024 Assessment & Plan (02/10/2024 1:47 PM EDT): She has strain to her trapezius musculature b/l, worse on right. Will enc heat/ massage and ref to PT she will call to book the appt and call back if worse, or if other s/s occur Muscle cramps 02/10/2024 Assessment & Plan (02/10/2024 1:50 PM EDT): She reports severe muscle cramps. She is taking spironolactone 150 mg po qd- for alopecia. I suspect this is partially causative. Hydration discussed and she can try to add powerade zero 2 bottles per day for the next 10 days to see if this helps reduce the cramps Gastroenteritis 02/10/2024 Assessment & Plan (02/10/2024 1:46 PM EDT): Was ill 02/03, now resolved. Eating and drinking well. Cont same Routine medical exam 11/25/2023 Assessment & Plan (11/25/2023 10:21 AM EDT): Obtain CMP and TSH level Follow-up 1 year for annual physical Breast cancer screening by mammogram 11/25/2023 Assessment & Plan (11/25/2023 10:21 AM EDT): Mammogram ordered for [facility] Alopecia 11/25/2023 Assessment & Plan (11/25/2023 10:23 AM EDT): Patient follows with dermatology and is maintained on Aldactone 150 mg daily and nicotinamide. Hypothyroidism 05/05/2018 Assessment & Plan (11/25/2023 10:22 AM EDT): Last TSH was back in December 2022 which revealed 3.25. Patient is maintained on levothyroxine 50 mcg daily. Continue levothyroxine and obtain a repeat TSH level Anxiety disorder 05/05/2018 Assessment & Plan (11/25/2023 10:22 AM EDT): Continue Zoloft 50 mg p.o. daily. Continue lorazepam 0.5 mg p.o. daily as needed MassPAT verified Resolved Problems Problem Noted Date Diagnosed Date Resolved Date Sacroiliitis 05/22/2023 11/25/2023 Assessment & Plan (05/22/2023 1:57 PM EST): She has developed sacroiliitis on the right- will ref to PT externally- she is aware to make her own appt.can try OTC meds/ topical if desired Info provided in AVS Acquired hammer toe of right foot 08/01/2022 11/25/2023 Blepharitis of left upper eyelid 06/25/2021 11/25/2023 Assessment & Plan (06/25/2021 4:57 PM EST): This could have been a stye that has developed into a broad-based phlegmon of the upper eyelid. Treat topically with erythromycin and orally with doxycycline. Patient will call if symptoms worsen. 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 Temporomandibular joint disorder 05/05/2018 11/25/2023 Vertigo 05/05/2018 11/25/2023 Encounters Date Type Department Care Team Description 11/18/2024 Telephone [facility] Internal Medicine [address] [place] [address] Johnny Vargas PA-C Labs 11/16/2024 Telephone [facility] Internal Medicine [address] [place] [address] Johnny Vargas PA-C 10/19/2024 Telephone [facility] Internal Medicine [address] [place] [address] Johnny Vargas PA-C Results 10/14/2024 3:43 PM EDT - 10/14/2024 11:59 PM EDT Hospital Encounter [address] [address] Johnny Vargas PA-C Discharge Disposition: Home or Self Care 10/12/2024 4:00 PM EDT Office Visit [facility] Internal Medicine [address] [place] [address] Johnny Vargas PA-C Mass of right lower extremity (Primary Dx) 09/16/2024 Telephone [facility] Internal Medicine [address] [place] [address] Johnny Vargas PA-C Referral (Requesting a [facility] Referral for pt ) from Last 3 Months Immunizations Immunization Administration Dates Next Due COVID-19 (Pre-02/23) Moderna Vaccine, mRNA, PF 06/02/2020,05/05/2020 Influenza Quadrivalent MDCK Preservative Free IM 02/20/2023,02/12/2022,07/15/2019 Influenza Quadrivalent Preservative Free IM 06/2018 Influenza Trivalent Preservative Free IM 017,02/05/2015 Influenza Trivalent w/ Preservative IM 5 Influenza trivalent preserva tive free intradermal 01/12/2013 Influenza, Unspecified Formulation 07/15/2019, PPD Test 03/03/2012 Tdap 02/12/2022,06/13/2015,12/12/2011 Zoster recombinant 09/13/2020 Family History Medical History Relation Comments Alcohol abuse Brother 1 Alcohol abuse Brother 2 Cirrhosis Brother 2 Liver cancer Brother 2 Diabetes type I Brother 3 Melanoma Brother 3 No Known Problems Daughter 1 No Known Problems Daughter 2 Diabetes Father Heart disease Father Hypertension Father Stroke Father Lung cancer Mother heavy smoker Alcohol abuse Sister 1 Alcohol abuse Sister 2 No Known Problems Son 1 No Known Problems Son 2 Relation Status Comments Brother 1 (Age 40) Brother 2 (Age 55) Brother 3 Alive Daughter 1 Alive Daughter 2 Alive Father (Age 66) Mother Sister 1 Alive Sister 2 Alive Son 1 Alive Son 2 Alive Social History Tobacco Use Types Packs/Day Years Used Date Smoking Tobacco: Former Cigarettes 0.3 23.8 0 11/16/1978 - 09/01/2002 Smokeless Tobacco: Never Alcohol Use Standard Drinks/Week Comments Yes 0 (1 standard drink = 0.6 oz pur e alcohol) Child or Family Care Answer Date Record ed Do you have problems with on e of the following making it difficult for you to work, study, or receive health care? No 08/01/2022 Education Answer Date Recorded Are you interested in more education? Not on letty e 08/05/2024 Are you concerned about learning? Not on file 08/05/2024 No 08/05/2024 No 08/05/2024 Food Answer Date Recorded Within the past 6 months we worried whether our food would run out before we got money to buy more. I choose not to answer 08/01/2022 Within the past 6 months the food we bought just didn't last and we didn't have enough money to get more. I choose not to answer 08/01/2022 Residential Stability Answer Date Recor ded What is your housing situation today? I have lenka sing 08/01/2022 How many times have you move d in the past 12 months? Zero (I did not move) 08/01/2022 Paying for Meds Answer Date Recorded Do you have trouble paying for medicines? No 08/01/2022 Paying Utility Bills Answer Date Record ed Do you have trouble paying y our heating or electricity bill? I choose not to answer 08/01/2022 Transportation Answer Date Recorded Has the lack of transportati on kept you from medical appointments or from getting medications? No 08/01/2022 Unemployment Answer Date Recorded Are you currently unemployed or working on a part-time or temporary basis, and looking for work? No 08/01/2022 Digital Access Answer Date Recorded No 09/29/2022 No 09/29/2022 Reliable internet access at home? Not on file 09/29/2022 Device with a working camera? Not on file Intimate Partner Violence Answer Date R ecorded Are you denied basic needs s uch as food, clothing, or medical care? No 05/18/2024 In the past 12 months have y ou been in a relationship with a person who hurts, threatens, or tries to control you? No 05/18/2024 Are you denied basic needs s uch as food, clothing, or medical care? No 05/18/2024 In the past 12 months have y ou been in a relationship with a person who hurts, threatens, or tries to control you? No 05/18/2024 Comments No Sex and Gender Information Value Date Recorded Sex Assigned at Female 09/22/2019 6:16 PM EDT Legal Sex Female 9:38 PM EDT Gender Identity Female 09/22/2019 6:16 PM EDT Sexual Orientation Not on file Last Filed Vital Signs Vital Sign Reading Time Taken Comments Blood Pressure 106/62 10/12/2024 4:03 PM EDT Pulse 62 10/12/2024 4:03 PM EDT Temperature 36.8 C (98.3 F) 10/12/2024 4:03 PM EDT Respiratory Rate 16 05/18/2024 4:57 PM EST Oxygen Saturation 97% 10/12/2024 4:03 PM EDT Inhaled Oxygen Concentration - - Weight 85.7 kg (189 lb) 10/12/2024 4:03 PM EDT Height 167.6 cm (5' 5.98 ) 10/12/2024 4:03 PM ED T Body Mass Index 30.52 10/12/2024 4:03 PM EDT Plan of Treatment Upcoming Encounters Date Type Department Care Team (Late st Contact Info) Description 12/08/2024 7:20 AM EDT Office [facility] [address] [place] [address] Johnny Vargas PA-C [address] [place] [address] [email or web address] Health Maintenance Due Date Last Done Comments BRIGIDO 2012 FIT TEST 2012 SIGMOIDOSCOPY 2012 VIRTUAL COLONOSCOPY 2012 PNEUMOCOCCAL VACCINES (50+ years) (1 of 1 - PCV) 2017 PAP SMEAR 05/11/2020 05/11/2017, 01/16/2016 FOBT 10/30/2020 10/31/2019 ZOSTER VACCINES (2 of 2) 11/08/2020 09/13/2020 COVID-19 VACCINE (3 - season) 2024 06/02/2020, 05/05/2020 DEPRESSION SCREENING 11/18/2024 11/19/2023 TSH LEVEL 02/10/2025 02/11/2024, 11/02, 12/24/2022, Additional history exists POTASSIUM LEVEL 05/18/2025 05/18/2024, 02/01, 11/25/2023, Additional history exists MAMMOGRAM 11/24/2025 11/25/2023, 12/2022, 12/24/2021, Additional history exists SCREENING FOR DIABETES 05/18/2027 , 05/21/2020, 05/12/2018, Additional history exists LIPID PANEL 12/25/2027 12/24/2022, 05/04, 05/21/2020, Additional history exists COLONOSCOPY 06/01/2029 06/01/2019 COLORECTAL CANCER SCREENING 06/01/2029 Adult Td,Tdap Booster 02/13/2032 02/12/2022 , 06/13/2015, 12/12/2011 HEPATITIS C SCREENING Completed 12/24/2022 HIV ONE-TIME SCREENING (18-65 YEARS) Completed 12/24/2022 SMOKING STATUS SCREENING (Once After 26 Yrs) Completed 10/12/2024 HEPATITIS A VACCINES Aged Out No long er eligible based on patient's age to complete this topic HIB VACCINES Aged Out No longer eligi ble based on patient's age to complete this topic MENINGOCOCCAL VACCINES (ACWY) Aged Out No longer eligible based on patient's age to complete this topic MENINGOCOCCAL VACCINES (B) Aged Out N o longer eligible based on patient's age to complete this topic Medical Devices Not on file Procedures Procedure Name Priority Date/Time Associated Diagnosis Comments US LOWER EXTREMITY NON-VASCULAR LIMITED (RIGHT) Routine 10/14/2024 5:27 PM EDT Mass of right lower extremity BASIC METABOLIC PANEL STAT 05/18/2024 2:52 PM EST TSH WITH REFLEX Routine 02/11/2024 5:04 PM EDT Hypothyroidism, unspecified type BI MAMMOGRAM SCREENING (BILATERAL) Routine 11/25/2023 8:03 AM EDT Breast cancer screening by mammogram LIPID PANEL Routine 12/24/2022 2:22 PM EDT Routine general medical examination at a health care facility HEPATITIS C ANTIBODY, QUALITATIVE Routine 12/24/2022 2:19 PM EDT Need for hepatitis C screening test OUTSIDE GLUCOSE FASTING Routine 05/21/2020 HM COLONOSCOPY FOR RESULT ENTRY ONLY Routine 06/01/2019 HM PAP SMEAR FOR RESULT ENTRY ONLY Routine 05/11/2017 from Last 3 Months or Most Recently Relevant to Health Maintenance Results * US LOWER EXTREMITY NON-VASCULAR LIMITED (RIGHT) (10/14/2024 5:27 PM EDT) Anatomical Region Laterality Modality Hip Right, Thigh Right, Knee Right, Leg Right, Ankle Right, Foot Right Ultrasound 10/18/2024 9:42 AM EDT Impressions 10/18/2024 9:43 AM EDT No sonographic evidence of a suspicious mass or focal fluid collection. Narrative 10/18/2024 9:43 AM EDT US LOWER EXTREMITY NON-VASCULAR LIMITED (RIGHT) Referring clinician's provided indication for this examination in Epic: Palpable Mas TECHNIQUE: Focused grayscale and color Doppler sonographic evaluation of the lateral right thigh was performed. COMPARISON: None FINDINGS: Focused sonographic evaluation of the lateral right thigh at the patient's indicated area of concern is without identification of a suspicious mass or focal fluid collection. Procedure Note Gayle Ramirez MD - 10/18/2024 US LOWER EXTREMITY NON-VASCULAR LIMITED (RIGHT) Referring clinician's provided indication for this examination in Epic:Palpable Mas TECHNIQUE: Focused grayscale and color Doppler sonographic evaluation ofthe lateral right thigh was performed. COMPARISON: None FINDINGS: Focused sonographic evaluation of the lateral right thigh at the patient'sindicated area of concern is without identification of a suspicious massor focal fluid collection. IMPRESSION: No sonographic evidence of a suspicious mass or focal fluid collection. Johnny Vargas PA-C IMG US EXTREMITY Final Result * Basic metabolic panel (05/18/2024 2:52 PM EST) SODIUM 138 133 - 146 mmol/L CHLORIDE 103 96 - 108 mmol/L POTASSIUM 4.4 3.3 - 5.1 mmol/L CO2 26 21 - 35 mmol/L BUN 14 6 - 19 mg/dL CREATININE 0.70 0.5 - 1.5 mg/dL GLUCOSE 97 70 - 99 mg/dL CALCIUM 9.3 8.4 - 10.3 mg/dL EGFR 101 >59 mL/min/1.7 3m2 Comment:Estimated glomerular filtration rate calculated using the CKD-EPI refit equation. ANION GAP 13 10 - 20 mmol/L Blood 05/18/2024 2:52 PM EST 05/18/2024 3:06 PM EST Eh Portillo PA-C LAB BLOOD ORDERABLES Final Re sult [address] [address] * TSH with reflex (02/11/2024 5:04 PM EDT) TSH 2.37 0.27 - 4.20 uIU/mL Blood 02/11/2024 5:04 PM EDT 02/11/2024 5:09 PM EDT Johnny Vargas PA-C LAB BLOOD ORDERABLES Final Re sult Performing Organization Address [facility] Co de Phone Number [address] [address] * HM MAMMOGRAPHY FOR RESULT ENTRY ONLY (01/09/2023) Evangelina Granados NP HEALTH MAINTENANCE Edited Resul t - Final * Lipid panel (12/24/2022 2:22 PM EDT) HDL 52 mg/dL Comment: Interpretation <40 mg/dL: Low HDL cholesterol (major risk factor for CHD) Greater than or equal to 60 mg/dL: High HDL cholesterol ( negative risk factor for CHD) HDL - cholesterol is affected by a number of factors, e.g. smoking, excerise, hormones, sex and age. CHOLESTEROL 185 0 - 240 mg/dL TRIGLYCERIDES 115 30 - 160 mg/dL LDL 110 50 - 129 mg/dL Comment: LDL levels in terms of risk for coronary heart disease: <100 mg/dL: Optimal 100-129 mg/dL: Near or above optimal 130-159 mg/dL: Borderline high 160-189 mg/dL: High >190 mg/dL: Very High CARDIAC RISK RATIO 3.6 3.3 - 4.4 C [facility] Blood 12/24/2022 2:22 PM EDT 12/24/2022 2:25 PM EDT Evangelina Granados NP LAB BLOOD ORDERABLES Final Resu lt Performing Organization Address [facility]/ZIP Co de Phone Number [address] [address] * Hepatitis C antibody, qualitative (12/24/2022 2:19 PM EDT) HCV NON-REACTIV E NON-REACTI VE Blood 12/24/2022 2:19 PM EDT 12/24/2022 2:25 PM EDT Result [facility] Evangelina Granados NP LAB BLOOD ORDERABLES Final Resu lt [address] [place] [address] * (ABNORMAL) Outside Glucose,Fasting (05/21/2020) Glucose, fasting - External 107(A) 65 - 99 mg/dL Result [facility] Historical Provider LAB BLOOD ORDERABLES Jackelyn l Result * COLONOSCOPY FOR RESULT ENTRY ONLY (06/01/2019) Pathologist [facility] Colonoscopy hyperplastic Result [facility] Historical Provider HEALTH MAINTENANCE Final Result * PAP SMEAR FOR RESULT ENTRY ONLY (05/11/2017) Historical Provider HEALTH MAINTENANCE Final Result from Last 3 Months or Most Recently Relevant to Health Maintenance Insurance [employer] Care Teams Heating Technician Relationship Specialty Start Date End Date Johnny Vargas PA-C [address] [place] [phone] [email or web address] PCP - General Physician Property Technician 11/25/23 Padmini Palacio DO [address] [place] [address] Drive [address] [place] [address] Obstetrics and Gynecology 06/25/21 aR Irizarry MD [address] [place] [id number] [email or web address] Insurance Assigned Provider 05/09/24 Additional Source Comments The information contained in this document represents components of the legal health record. It is not the complete legal health record.[facility]
[2024-11-29 09:46] LABS: Alanine Aminotransferase 24 U/L (0-31); Albumin Level 4.6 g/dL (3.5-5.0); Alkaline Phosphatase 71 U/L (39-117); Anion Gap 12 (12-20); Aspartate Amino Transferase 22 U/L (5-31); Blood Urea Nitrogen 17 mg/dL (9-16); Calcium 9.4 mg/dL (8.4-10.2); Carbon Dioxide 28 mmol/L (22-29); Chloride 106 mmol/L (96-108); Cholesterol 203 mg/dL (<200); Estimated Glomerular Filt Rate > 60; HDL Cholesterol 37 mg/dL (>40); Potassium 4.5 mmol/L (3.3-5.1); Sodium 141 mmol/L (135-145); Total Protein 7.2 g/dL (6.5-8.0); Triglycerides 249 mg/dL (<150)
== END 2024-11-29 08:35 | disposition home or self-care (01) ==
LOC: HO.LAB 08:34
PROVIDERS: PCP Physician Assistant Surgical; Visit Provider Physician Assistant Surgical
DX: Z00.00 Encounter for general adult medical examination without abnormal findings (principal); E03.9 Hypothyroidism, unspecified
CPT/HCPCS: 36415; 80053; 80061; 84443